=== PATIENT | female | born 1970 | race Caucasian/White ===

== ENCOUNTER 2020-01-28 01:33 | Inpatient (IN) | payer OTHER ==
[~2020-01-28] VITALS: Ht 175.3 cm; Wt 56.5 kg
--- NOTE | 2020-01-28 01:40 | NUR ---
pt BIB [facility] from [facility] for low sodium and mulitple falls [employer]. pt has bruising all over her body in mulitple stages of healing, and a scab on the bridge of her nose. pt is altered and thinks thta it is currently 2006. pt knows her name and her birthdate, but thinks that she is currently in [facility]. no family at bedside
[2020-01-28] MEDS ORDERED: SODIUM CHLORIDE 0.9% 1,000 ML IV ONE (01:55)
[2020-01-28] MEDS ORDERED: SODIUM CHLORIDE FLUSH 10ML SYR IVF ONE ×2 (02:00)
[2020-01-28] MEDS ORDERED: MAGNESIUM SULFATE 1 GM, THIAMINE 100 MG, FOLIC ACID 1 MG, MVI ADULT 10 ML in SODIUM CHL... IV ONE (02:00)
--- NOTE | 2020-01-28 02:00 | NUR ---
pt resting in position of comfort. no family at bedside
[2020-01-28 02:10] LABS: ALANINE AMINOTRANSFERASE 66 U/L (12-78); ALBUMIN 3.3 g/dL (3.4-5.0); ANION GAP 10 mmol/L (5-15); CALCIUM 8.8 mg/dL (8.5-10.1); CHLORIDE 84 mmol/L (98-107); CREATININE 0.62 mg/dL (0.55-1.02); MEAN CORPUSCULAR HEMOGLOBIN 34.6 pg (27.0-34.8); MEAN CORPUSCULAR HGB CONC 33.7 g/dL (32.4-35.8); RED BLOOD COUNT 3.18 x10^6/uL (3.82-5.3); RED CELL DISTRIBUTION WIDTH 13.3 % (9.6-15.2)
[2020-01-28 02:12] LABS: ALKALINE PHOSPHATASE 141 U/L (45-117); BILIRUBIN,TOTAL 3.1 mg/dL (0.2-1.0); TOTAL PROTEIN 7.4 g/dL (6.4-8.2)
--- NOTE | 2020-01-28 02:20 | NUR ---
report to [facility] for lunch
[2020-01-28 02:41] LABS: BASOPHILS # (AUTO) 0.02 x10^3/uL (0-0.1); BASOPHILS % (AUTO) 0 % (0-1); EOSINOPHILS # (AUTO) 0.01 x10^3/uL (0-0.4); EOSINOPHILS % (AUTO) 0 % (1-7); LYMPHOCYTES # (AUTO) 0.67 x10^3/uL (1-3.4); LYMPHOCYTES % (AUTO) 17 % (22-44); MD MORPH REVIEW ONLY; MEAN PLATELET VOLUME 7.9 fL (7.4-10.4); MONOCYTES % (AUTO) 13 % (2-9); NEUTROPHILS # (AUTO) 2.78 x10^3/uL (1.8-6.8); NEUTROPHILS % (AUTO) 70 % (42-75); PLATELET COUNT 92 x10^3/uL (130-400)
[2020-01-28 02:42] LABS: <RBC MORPHOLOGY> NORMAL
[2020-01-28 02:43] LABS: <PLATELET ESTIMATE> DECREASED; <PLT MORPHOLOGY> NORMAL PLT MORPH
--- NOTE | 2020-01-28 02:44 | NUR ---
Break rn: Awaiting med from rx.
--- NOTE | 2020-01-28 02:55 | NUR ---
pt has pulled out her IV#2. cath intact, dressing applied. new IV to be placed
--- NOTE | 2020-01-28 03:20 | NUR ---
pt positioned for comfort. fall precautions in place. seizure precautions in place. pt resting. IV infusing. awaiting admit
--- NOTE | 2020-01-28 04:01 | NUR ---
pt dozing intermittently. has been moved from room 15 to room 17 to be more visible to RN station. awaiting admit
--- NOTE | 2020-01-28 04:30 | NUR ---
pt sleeping at this time. awaiting admit
--- NOTE | 2020-01-28 05:56 | NUR ---
pt resting in position of comfort. dozing intermittently. pt knows her name, but thinks that she is in [place]. does not know events leading up to her admission here. attempting to re-orient pt. pt calm and cooperative. no apparent distress at this time. awaiting admit
--- NOTE | 2020-01-28 05:58 | NUR ---
hospitalist at bedside to evaluate for admit
[2020-01-28] MEDS ORDERED: LORazepam 0.5MG TABLET PO PRN (06:30)
[2020-01-28] MEDS ORDERED: LABETALOL 5MG/ML, 20ML IVPush PRN (06:30)
[2020-01-28] MEDS ORDERED: PROMETHAZINE 25 MG/ML, 1ML IM PRN (06:30)
[2020-01-28] MEDS ORDERED: NICOTINE 14MG/24 HR PATCH.TD24 TD ONE (06:30)
[2020-01-28] MEDS ORDERED: LORazepam 1MG TABLET PO PRN ×3 (06:30)
[2020-01-28] MEDS ORDERED: LORazepam 2 MG/ML, 1ML IV PRN ×2 (06:30)
--- NOTE | 2020-01-28 06:42 | NUR ---
bed assignment recieved, attempting to call report
--- NOTE | 2020-01-28 06:43 | NUR ---
report called to [facility]
--- NOTE | 2020-01-28 06:56 | NUR ---
pt to floor via [facility]. IV fluids infusing on admit
[2020-01-28 07:14] VITALS: BP 127/82
[2020-01-28] MEDS: POTASSIUM CHLORIDE 20 MEQ, MAGNESIUM SULFATE 2 GM, THIAMINE 200 MG, MVI ADULT 10 ML, FO... IV SCH (09:21)
[2020-01-28] MEDS: DIAZEPAM 10 MG TABLET PO SCH ×4 (09:21→21:15)
[2020-01-28 14:34] VITALS: BP 116/73
[2020-01-28] MEDS: LORazepam 2 MG/ML, 1ML IV PRN (18:00)
[2020-01-28 18:44] VITALS: BP 108/73
[2020-01-29 01:15] VITALS: BP 102/65
[2020-01-29] MEDS: DIAZEPAM 10 MG TABLET PO SCH (02:33)
[2020-01-29 04:03] VITALS: BP 138/87
[2020-01-29] MEDS: ACETAMINOPHEN 325 MG TABLET PO PRN ×2 (04:04→21:38)
[2020-01-29] MEDS: LORazepam 1MG TABLET PO PRN (04:07)
[2020-01-29 05:50] LABS: MEAN CORPUSCULAR HEMOGLOBIN 34.6 pg (27.0-34.8); MEAN CORPUSCULAR HGB CONC 33.6 g/dL (32.4-35.8); PLATELET COUNT 84 x10^3/uL (130-400); RED BLOOD COUNT 2.75 x10^6/uL (3.82-5.3); RED CELL DISTRIBUTION WIDTH 12.6 % (9.6-15.2)
[2020-01-29 05:51] LABS: CHLORIDE 97 mmol/L (98-107)
[2020-01-29 06:10] LABS: ALANINE AMINOTRANSFERASE 52 U/L (12-78); ALBUMIN 2.6 g/dL (3.4-5.0); ALKALINE PHOSPHATASE 119 U/L (45-117); ANION GAP 6 mmol/L (5-15); BILIRUBIN,TOTAL 1.6 mg/dL (0.2-1.0); CALCIUM 7.8 mg/dL (8.5-10.1); CREATININE 0.47 mg/dL (0.55-1.02)
[2020-01-29 06:24] LABS: BASOPHILS # (AUTO) 0.01 x10^3/uL (0-0.1); BASOPHILS % (AUTO) 1 % (0-1); EOSINOPHILS # (AUTO) 0.07 x10^3/uL (0-0.4); EOSINOPHILS % (AUTO) 2 % (1-7); LYMPHOCYTES % (AUTO) 23 % (22-44); MD SCAN; MONOCYTES % (AUTO) 13 % (2-9); NEUTROPHILS # (AUTO) 1.81 x10^3/uL (1.8-6.8); NEUTROPHILS % (AUTO) 61 % (42-75)
[2020-01-29] MEDS ORDERED: DIAZEPAM 5 MG TABLET PO SCH (06:30)
[2020-01-29 06:36] VITALS: BP 111/77
[2020-01-29 06:59] LABS: AMPHETAMINE SCREEN, URINE Negative (Negative); BARBITURATE SCREEN, URINE Negative (Negative); BENZODIAZEPINE SCREEN, URINE Positive (Negative); CANNABINOID SCREEN, URINE Negative (Negative); COCAINE SCREEN, URINE Negative (Negative); METHADONE SCREEN, URINE Negative (Negative); OPIATE SCREEN, URINE Negative (Negative)
[2020-01-29] MEDS: POTASSIUM CHLORIDE 20 MEQ, MAGNESIUM SULFATE 2 GM, THIAMINE 200 MG, MVI ADULT 10 ML, FO... IV SCH (10:00)
[2020-01-29] MEDS: LORazepam 2 MG/ML, 1ML IV PRN (10:21)
[2020-01-29] MEDS ORDERED: DIAZEPAM 10 MG TABLET PO PRN (10:30)
[2020-01-29] MEDS ORDERED: POTASSIUM PHOSPHATE 44 MEQ in SODIUM CHLORIDE 0.9% 500 ML IV ONE (10:30)
[2020-01-29 12:00] VITALS: BP 130/89
[2020-01-29] MEDS ORDERED: DIAZEPAM 10 MG TABLET PO SCH (12:30)
[2020-01-29] MEDS: CHLORDIAZEPOXIDE 25 MG CAPSULE PO SCH ×3 (13:36→21:29)
[2020-01-29 18:25] VITALS: BP 129/90
[2020-01-30] MEDS: LORazepam 2 MG/ML, 1ML IV PRN ×6 (01:10→21:33)
[2020-01-30 01:41] VITALS: BP 118/84
[2020-01-30 05:06] LABS: ANION GAP 6 mmol/L (5-15); CALCIUM 8.3 mg/dL (8.5-10.1); CHLORIDE 102 mmol/L (98-107)
[2020-01-30 05:09] LABS: CREATININE 0.47 mg/dL (0.55-1.02)
[2020-01-30] MEDS: CHLORDIAZEPOXIDE 25 MG CAPSULE PO SCH ×6 (05:40→20:43)
[2020-01-30 06:44] VITALS: BP 133/90
[2020-01-30] MEDS: POTASSIUM CHLORIDE 20 MEQ, MAGNESIUM SULFATE 2 GM, THIAMINE 200 MG, MVI ADULT 10 ML, FO... IV SCH (07:30)
[2020-01-30] MEDS: LORazepam 1MG TABLET PO PRN (07:38)
[2020-01-30] MEDS ORDERED: POTASSIUM CHLORIDE 20 MEQ TAB.ER.PRT PO ONE ×2 (09:00→11:00)
[2020-01-30 12:52] VITALS: BP 142/90
[2020-01-30 18:38] VITALS: BP 128/87
[2020-01-31] MEDS: LORazepam 2 MG/ML, 1ML IV PRN ×2 (00:34→08:35)
[2020-01-31 01:01] VITALS: BP 120/86
[2020-01-31] MEDS: CHLORDIAZEPOXIDE 25 MG CAPSULE PO SCH ×4 (04:54→21:00)
[2020-01-31 05:09] LABS: ALBUMIN 3.2 g/dL (3.4-5.0); ANION GAP 7 mmol/L (5-15); CALCIUM 9.1 mg/dL (8.5-10.1); CHLORIDE 102 mmol/L (98-107)
[2020-01-31 05:14] LABS: ALANINE AMINOTRANSFERASE 57 U/L (12-78); ALKALINE PHOSPHATASE 150 U/L (45-117); BILIRUBIN,TOTAL 1.2 mg/dL (0.2-1.0); CREATININE 0.47 mg/dL (0.55-1.02); TOTAL PROTEIN 7.6 g/dL (6.4-8.2)
[2020-01-31 07:11] VITALS: BP 136/87
[2020-01-31] MEDS: POTASSIUM CHLORIDE 20 MEQ, MAGNESIUM SULFATE 2 GM, THIAMINE 200 MG, MVI ADULT 10 ML, FO... IV SCH (08:38)
[2020-01-31 13:20] VITALS: BP 139/85
[2020-01-31 19:23] VITALS: BP 124/80
[2020-02-01 03:45] VITALS: BP 152/93
[2020-02-01] MEDS: CHLORDIAZEPOXIDE 25 MG CAPSULE PO SCH ×2 (06:00→11:00)
[2020-02-01 08:31] VITALS: BP 135/92
[2020-02-01] MEDS ORDERED: QUETIAPINE 25MG TABLET PO SCH (09:00)
[2020-02-01] MEDS: THIAMINE 200 MG in SODIUM CHLORIDE 0.9% 50 ML IV SCH (10:25)
[2020-02-01] MEDS: POTASSIUM CHLORIDE 20 MEQ, MAGNESIUM SULFATE 2 GM, THIAMINE 200 MG, MVI ADULT 10 ML, FO... IV SCH (11:46)
[2020-02-01 15:07] VITALS: BP 115/78
[2020-02-01 18:47] VITALS: BP 110/73
[2020-02-01] MEDS: QUETIAPINE 25MG TABLET PO PRN (20:59)
[2020-02-02 01:17] VITALS: BP 119/79
[2020-02-02 07:06] VITALS: BP 119/81
[2020-02-02] MEDS: POTASSIUM CHLORIDE 20 MEQ, MAGNESIUM SULFATE 2 GM, THIAMINE 200 MG, MVI ADULT 10 ML, FO... IV SCH (08:40)
[2020-02-02] MEDS: THIAMINE 200 MG in SODIUM CHLORIDE 0.9% 50 ML IV SCH (08:40)
[2020-02-02 12:52] VITALS: BP 134/85
[2020-02-02 20:30] VITALS: BP 118/77
[2020-02-03 00:26] VITALS: BP 124/79
[2020-02-03 08:36] VITALS: BP 129/86
[2020-02-03] MEDS: THIAMINE 200 MG in SODIUM CHLORIDE 0.9% 50 ML IV SCH (08:56)
[2020-02-03] MEDS: POTASSIUM CHLORIDE 20 MEQ, MAGNESIUM SULFATE 2 GM, THIAMINE 200 MG, MVI ADULT 10 ML, FO... IV SCH (08:57)
[2020-02-03 13:24] VITALS: BP 133/85
[2020-02-03 18:41] VITALS: BP 128/82
[2020-02-03 19:54] VITALS: BP 112/73
[2020-02-04 00:27] VITALS: BP 126/82
[2020-02-04] MEDS: QUETIAPINE 25MG TABLET PO PRN ×2 (03:10→21:08)
[2020-02-04 07:35] VITALS: BP 131/82
[2020-02-04] MEDS: THIAMINE 200 MG in SODIUM CHLORIDE 0.9% 50 ML IV SCH (09:00)
[2020-02-04 13:14] VITALS: BP 124/80
[2020-02-04 20:36] VITALS: BP 155/98
[2020-02-05 00:58] VITALS: BP 158/103
[2020-02-05 05:41] LABS: BASOPHILS # (AUTO) 0.08 x10^3/uL (0-0.1); BASOPHILS % (AUTO) 2 % (0-1); EOSINOPHILS # (AUTO) 0.08 x10^3/uL (0-0.4); EOSINOPHILS % (AUTO) 1 % (1-7); LYMPHOCYTES # (AUTO) 1.38 x10^3/uL (1-3.4); LYMPHOCYTES % (AUTO) 26 % (22-44); MD NO; MEAN CORPUSCULAR HEMOGLOBIN 33.4 pg (27.0-34.8); MEAN CORPUSCULAR HGB CONC 32.8 g/dL (32.4-35.8); MEAN PLATELET VOLUME 7.2 fL (7.4-10.4); MONOCYTES # (AUTO) 0.96 x10^3/uL (0.2-0.8); MONOCYTES % (AUTO) 18 % (2-9); NEUTROPHILS # (AUTO) 2.84 x10^3/uL (1.8-6.8); NEUTROPHILS % (AUTO) 53 % (42-75); PLATELET COUNT 440 x10^3/uL (130-400); RED BLOOD COUNT 3.02 x10^6/uL (3.82-5.3); RED CELL DISTRIBUTION WIDTH 14.5 % (9.6-15.2)
[2020-02-05 05:51] LABS: ANION GAP 8 mmol/L (5-15); CALCIUM 8.7 mg/dL (8.5-10.1); CHLORIDE 101 mmol/L (98-107)
[2020-02-05 05:54] LABS: CREATININE 0.42 mg/dL (0.55-1.02)
[2020-02-05 07:03] VITALS: BP 138/86
[2020-02-05] MEDS: THIAMINE 200 MG in SODIUM CHLORIDE 0.9% 50 ML IV SCH (09:54)
[2020-02-05] MEDS: MAGNESIUM OXIDE 400 MG TABLET PO SCH (12:27)
[2020-02-05 12:48] VITALS: BP 141/91
[2020-02-05 18:27] VITALS: BP 145/94
[2020-02-05] MEDS: QUETIAPINE 25MG TABLET PO PRN (20:54)
[2020-02-05 23:12] LABS: CLOSTRIDIUM DIFFICILE ANTIGEN POSITIVE; CLOSTRIDIUM DIFFICILE TOXIN NEGATIVE (Negative)
[2020-02-06 02:23] VITALS: BP 128/87
[2020-02-06 07:43] VITALS: BP 145/91
[2020-02-06 07:53] LABS: ALANINE AMINOTRANSFERASE 20 U/L (12-78); ALBUMIN 2.6 g/dL (3.4-5.0); ANION GAP 9 mmol/L (5-15); CHLORIDE 101 mmol/L (98-107)
[2020-02-06 07:58] LABS: ALKALINE PHOSPHATASE 114 U/L (45-117); BILIRUBIN,TOTAL 0.5 mg/dL (0.2-1.0); CREATININE 0.37 mg/dL (0.55-1.02)
[2020-02-06 08:06] LABS: CALCIUM 8.9 mg/dL (8.5-10.1)
[2020-02-06] MEDS ORDERED: THIAMINE 200 MG in SODIUM CHLORIDE 0.9% 50 ML IV SCH (09:00)
[2020-02-06] MEDS ORDERED: MAGNESIUM SULFATE PMX 4GM/100M 100 ML IV ONE (09:00)
[2020-02-06] MEDS ORDERED: POTASSIUM CHLORIDE 20 MEQ TAB.ER.PRT PO SCH (09:00)
[2020-02-06] MEDS: MAGNESIUM OXIDE 400 MG TABLET PO SCH (10:07)
[2020-02-06 13:32] VITALS: BP 126/84
[2020-02-06 18:24] VITALS: BP 143/93
[2020-02-06] MEDS: QUETIAPINE 25MG TABLET PO PRN (19:56)
[2020-02-07] MEDS: ACETAMINOPHEN 325 MG TABLET PO PRN (00:30)
[2020-02-07 01:23] VITALS: BP 110/72
[2020-02-07 06:57] VITALS: BP 128/83
[2020-02-07 07:18] LABS: ANION GAP 7 mmol/L (5-15); CALCIUM 8.9 mg/dL (8.5-10.1); CHLORIDE 99 mmol/L (98-107)
[2020-02-07 07:19] LABS: CREATININE 0.52 mg/dL (0.55-1.02)
[2020-02-07] MEDS: MAGNESIUM OXIDE 400 MG TABLET PO SCH (08:30)
[2020-02-07] MEDS: THIAMINE 100MG TABLET PO SCH (08:30)
[2020-02-07] MEDS: FOLIC ACID 1 MG TABLET PO SCH (08:30)
[2020-02-07 12:32] VITALS: BP 118/63
[2020-02-07] MEDS: QUETIAPINE 25MG TABLET PO PRN ×2 (16:29→20:26)
[2020-02-07 18:54] VITALS: BP 132/89
[2020-02-08 02:08] VITALS: BP 136/82
[2020-02-08] MEDS: ACETAMINOPHEN 325 MG TABLET PO PRN (02:39)
[2020-02-08 06:24] LABS: ANION GAP 10 mmol/L (5-15); CALCIUM 8.7 mg/dL (8.5-10.1); CHLORIDE 98 mmol/L (98-107)
[2020-02-08 06:25] LABS: CREATININE 0.59 mg/dL (0.55-1.02)
[2020-02-08 06:27] LABS: BASOPHILS # (AUTO) 0.09 x10^3/uL (0-0.1); BASOPHILS % (AUTO) 1 % (0-1); EOSINOPHILS # (AUTO) 0.14 x10^3/uL (0-0.4); EOSINOPHILS % (AUTO) 2 % (1-7); LYMPHOCYTES # (AUTO) 1.57 x10^3/uL (1-3.4); LYMPHOCYTES % (AUTO) 22 % (22-44); MD NO; MEAN CORPUSCULAR HGB CONC 32.6 g/dL (32.4-35.8); MEAN PLATELET VOLUME 6.6 fL (7.4-10.4); MONOCYTES # (AUTO) 0.87 x10^3/uL (0.2-0.8); MONOCYTES % (AUTO) 12 % (2-9); NEUTROPHILS # (AUTO) 4.48 x10^3/uL (1.8-6.8); NEUTROPHILS % (AUTO) 63 % (42-75); PLATELET COUNT 600 x10^3/uL (130-400); RED BLOOD COUNT 3.15 x10^6/uL (3.82-5.3); RED CELL DISTRIBUTION WIDTH 14.5 % (9.6-15.2)
[2020-02-08 07:22] VITALS: BP 130/89
[2020-02-08] MEDS: FOLIC ACID 1 MG TABLET PO SCH (08:53)
[2020-02-08] MEDS: QUETIAPINE 25MG TABLET PO PRN ×2 (08:53→20:19)
[2020-02-08] MEDS: POTASSIUM CHLORIDE 20 MEQ TAB.ER.PRT PO SCH ×2 (08:53→17:26)
[2020-02-08] MEDS: MAGNESIUM OXIDE 400 MG TABLET PO SCH (08:53)
[2020-02-08] MEDS: THIAMINE 100MG TABLET PO SCH (08:53)
[2020-02-08] MEDS: MULTIVIT.W/IRON, MINERALS ORAL SOL NG SCH (10:24)
[2020-02-08 13:12] VITALS: BP 115/78
[2020-02-08 19:51] VITALS: BP 140/91
[2020-02-09 01:00] VITALS: BP 132/83
[2020-02-09] MEDS ORDERED: ZIPRASIDONE 20 MG INJ IM ONE (04:00)
[2020-02-09 06:40] LABS: ANION GAP 5 mmol/L (5-15); CALCIUM 9.9 mg/dL (8.5-10.1); CHLORIDE 104 mmol/L (98-107); CREATININE 0.47 mg/dL (0.55-1.02)
[2020-02-09 08:26] VITALS: BP 136/88
[2020-02-09] MEDS: FOLIC ACID 1 MG TABLET PO SCH (11:42)
[2020-02-09] MEDS: MAGNESIUM OXIDE 400 MG TABLET PO SCH (11:42)
[2020-02-09] MEDS: MULTIVIT.W/IRON, MINERALS ORAL SOL NG SCH (11:42)
[2020-02-09] MEDS: THIAMINE 100MG TABLET PO SCH (11:42)
[2020-02-09] MEDS: QUETIAPINE 25MG TABLET PO PRN ×2 (11:45→21:19)
[2020-02-09 14:00] VITALS: BP 158/102
[2020-02-09 19:53] VITALS: BP 126/84
[2020-02-10 00:03] VITALS: BP 125/89
[2020-02-10 05:23] LABS: ANION GAP 9 mmol/L (5-15); CALCIUM 9.1 mg/dL (8.5-10.1); CHLORIDE 99 mmol/L (98-107); CREATININE 0.43 mg/dL (0.55-1.02)
[2020-02-10 05:42] LABS: BASOPHILS # (AUTO) 0.06 x10^3/uL (0-0.1); BASOPHILS % (AUTO) 1 % (0-1); EOSINOPHILS # (AUTO) 0.14 x10^3/uL (0-0.4); EOSINOPHILS % (AUTO) 2 % (1-7); LYMPHOCYTES # (AUTO) 1.78 x10^3/uL (1-3.4); LYMPHOCYTES % (AUTO) 19 % (22-44); MD NO; MEAN CORPUSCULAR HEMOGLOBIN 33.2 pg (27.0-34.8); MEAN CORPUSCULAR HGB CONC 33.4 g/dL (32.4-35.8); MEAN PLATELET VOLUME 7.4 fL (7.4-10.4); MONOCYTES % (AUTO) 11 % (2-9); NEUTROPHILS # (AUTO) 6.41 x10^3/uL (1.8-6.8); NEUTROPHILS % (AUTO) 68 % (42-75); PLATELET COUNT 570 x10^3/uL (130-400); RED BLOOD COUNT 3.15 x10^6/uL (3.82-5.3); RED CELL DISTRIBUTION WIDTH 14.2 % (9.6-15.2)
[2020-02-10] MEDS ORDERED: POTASSIUM CHLORIDE 20 MEQ TAB.ER.PRT PO ONE (06:30)
[2020-02-10 06:57] VITALS: BP 156/99
[2020-02-10] MEDS ORDERED: MAGNESIUM SULFATE PMX 2GM/50ML 50 ML IV ONE (09:30)
[2020-02-10] MEDS: QUETIAPINE 25MG TABLET PO PRN ×2 (09:44→20:09)
[2020-02-10] MEDS: MAGNESIUM OXIDE 400 MG TABLET PO SCH (09:44)
[2020-02-10] MEDS: THIAMINE 100MG TABLET PO SCH (09:44)
[2020-02-10] MEDS: FOLIC ACID 1 MG TABLET PO SCH (09:44)
[2020-02-10] MEDS: MULTIVIT.W/IRON, MINERALS ORAL SOL NG SCH (09:54)
[2020-02-10 10:26] LABS: MICROSCOPIC NOT IND
[2020-02-10 13:14] VITALS: BP 135/86
[2020-02-10] MEDS ORDERED: ZIPRASIDONE 20MG CAPSULE PO ONE (15:00)
[2020-02-10] MEDS: LORazepam 2 MG/ML, 1ML IVPush PRN ×2 (15:31→20:46)
[2020-02-10 20:09] VITALS: BP 142/91
[2020-02-10] MEDS: ACETAMINOPHEN 325 MG TABLET PO PRN (20:09)
[2020-02-11 02:00] VITALS: BP 136/87
[2020-02-11] MEDS: ACETAMINOPHEN 325 MG TABLET PO PRN (04:17)
[2020-02-11] MEDS: LORazepam 2 MG/ML, 1ML IVPush PRN ×3 (05:15→22:52)
[2020-02-11 05:36] LABS: ALBUMIN 2.8 g/dL (3.4-5.0); ANION GAP 6 mmol/L (5-15); CALCIUM 9.2 mg/dL (8.5-10.1); CHLORIDE 101 mmol/L (98-107)
[2020-02-11 05:40] LABS: ALANINE AMINOTRANSFERASE 19 U/L (12-78); ALKALINE PHOSPHATASE 104 U/L (45-117); BILIRUBIN,TOTAL 0.4 mg/dL (0.2-1.0); CREATININE 0.45 mg/dL (0.55-1.02); TOTAL PROTEIN 7.4 g/dL (6.4-8.2)
[2020-02-11] MEDS ORDERED: MAGNESIUM SULFATE/D5W 100 ML IV ONE ×2 (06:00→15:00)
[2020-02-11 07:51] VITALS: BP 128/83
[2020-02-11] MEDS ORDERED: LORazepam 2 MG/ML, 1ML IVPush ONE ×2 (09:00→15:30)
[2020-02-11] MEDS: FOLIC ACID 1 MG TABLET PO SCH (09:43)
[2020-02-11] MEDS: MAGNESIUM OXIDE 400 MG TABLET PO SCH (09:43)
[2020-02-11] MEDS: MULTIVITAMINS/MINERALS TABLET PO SCH (09:44)
[2020-02-11] MEDS: THIAMINE 100MG TABLET PO SCH (09:44)
[2020-02-11] MEDS: QUETIAPINE 25MG TABLET PO PRN ×2 (09:44→20:59)
[2020-02-11 13:10] VITALS: BP 122/81
[2020-02-11] MEDS ORDERED: POTASSIUM CHLORIDE 20 MEQ TAB.ER.PRT PO ONE (15:00)
[2020-02-11] MEDS ORDERED: SODIUM CHLORIDE 0.9%, 500ML IVBOLUS ONE (15:00)
[2020-02-11 18:44] VITALS: BP 127/80
[2020-02-12 02:02] VITALS: BP 152/99
[2020-02-12 06:29] VITALS: BP 148/93
[2020-02-12] MEDS ORDERED: OLANZAPINE 5 MG TABLET ONE (08:23)
[2020-02-12] MEDS: THIAMINE 100MG TABLET PO SCH (08:43)
[2020-02-12] MEDS: MAGNESIUM OXIDE 400 MG TABLET PO SCH (08:43)
[2020-02-12] MEDS: OLANZAPINE 2.5 MG TABLET PO SCH (08:43)
[2020-02-12] MEDS: MULTIVITAMINS/MINERALS TABLET PO SCH (08:43)
[2020-02-12] MEDS: FOLIC ACID 1 MG TABLET PO SCH (08:43)
[2020-02-12 13:11] VITALS: BP 136/76
[2020-02-12] MEDS: LORazepam 2 MG/ML, 1ML IVPush PRN ×2 (14:43→20:43)
[2020-02-12 19:36] VITALS: BP 120/84
[2020-02-12] MEDS: ACETAMINOPHEN 325 MG TABLET PO PRN (20:43)
[2020-02-13 02:46] VITALS: BP 143/94
[2020-02-13] MEDS: ACETAMINOPHEN 325 MG TABLET PO PRN (03:00)
[2020-02-13] MEDS: LORazepam 2 MG/ML, 1ML IVPush PRN ×4 (03:00→23:34)
[2020-02-13 05:45] LABS: ANION GAP 8 mmol/L (5-15); CALCIUM 9.2 mg/dL (8.5-10.1); CHLORIDE 101 mmol/L (98-107)
[2020-02-13 05:48] LABS: CREATININE 0.45 mg/dL (0.55-1.02)
[2020-02-13 07:31] VITALS: BP 142/96
[2020-02-13] MEDS: MULTIVITAMINS/MINERALS TABLET PO SCH (08:51)
[2020-02-13] MEDS: MAGNESIUM OXIDE 400 MG TABLET PO SCH (08:51)
[2020-02-13] MEDS: FOLIC ACID 1 MG TABLET PO SCH (08:51)
[2020-02-13] MEDS: THIAMINE 100MG TABLET PO SCH (08:51)
[2020-02-13] MEDS: OLANZAPINE 2.5 MG TABLET PO SCH (09:01)
[2020-02-13] MEDS ORDERED: OLANZAPINE 2.5 MG TABLET PO ONE (12:30)
[2020-02-13 12:41] VITALS: BP 143/102
[2020-02-13 18:49] VITALS: BP 124/85
[2020-02-14 00:21] VITALS: BP 119/89
[2020-02-14 06:11] LABS: ANION GAP 8 mmol/L (5-15); CALCIUM 9.3 mg/dL (8.5-10.1); CHLORIDE 98 mmol/L (98-107)
[2020-02-14 06:14] LABS: ALANINE AMINOTRANSFERASE 16 U/L (12-78); ALKALINE PHOSPHATASE 95 U/L (45-117); BILIRUBIN,TOTAL 0.3 mg/dL (0.2-1.0); CREATININE 0.46 mg/dL (0.55-1.02); TOTAL PROTEIN 7.4 g/dL (6.4-8.2)
[2020-02-14 06:36] VITALS: BP 125/82
[2020-02-14] MEDS: MAGNESIUM OXIDE 400 MG TABLET PO SCH (09:06)
[2020-02-14] MEDS: FOLIC ACID 1 MG TABLET PO SCH (09:06)
[2020-02-14] MEDS: THIAMINE 100MG TABLET PO SCH (09:07)
[2020-02-14] MEDS: OLANZAPINE 5 MG TABLET PO SCH (09:07)
[2020-02-14] MEDS: MULTIVITAMINS/MINERALS TABLET PO SCH (09:07)
[2020-02-14 13:49] VITALS: BP 126/87
[2020-02-14 18:51] VITALS: BP 123/80
[2020-02-15 01:56] VITALS: BP 120/82
[2020-02-15 07:21] VITALS: BP 138/88
[2020-02-15] MEDS: OLANZAPINE 5 MG TABLET PO SCH (08:13)
[2020-02-15] MEDS: FOLIC ACID 1 MG TABLET PO SCH (08:13)
[2020-02-15] MEDS: THIAMINE 100MG TABLET PO SCH (08:13)
[2020-02-15] MEDS: MULTIVITAMINS/MINERALS TABLET PO SCH (08:13)
[2020-02-15] MEDS: MAGNESIUM OXIDE 400 MG TABLET PO SCH (08:13)
[2020-02-15 12:53] VITALS: BP 114/80
[2020-02-15 18:57] VITALS: BP 136/88
[2020-02-16 00:30] VITALS: BP 120/82
[2020-02-16] MEDS: LORazepam 2 MG/ML, 1ML IVPush PRN (01:51)
[2020-02-16 07:30] LABS: ANION GAP 7 mmol/L (5-15); CALCIUM 9.3 mg/dL (8.5-10.1); CHLORIDE 101 mmol/L (98-107); CREATININE 0.39 mg/dL (0.55-1.02)
[2020-02-16 08:57] VITALS: BP 112/78
[2020-02-16] MEDS: THIAMINE 100MG TABLET PO SCH (10:03)
[2020-02-16] MEDS: MULTIVITAMINS/MINERALS TABLET PO SCH (10:03)
[2020-02-16] MEDS: OLANZAPINE 5 MG TABLET PO SCH (10:03)
[2020-02-16] MEDS: MAGNESIUM OXIDE 400 MG TABLET PO SCH (10:03)
[2020-02-16] MEDS: FOLIC ACID 1 MG TABLET PO SCH (10:03)
[2020-02-16 13:35] VITALS: BP 128/87
[2020-02-16 19:07] VITALS: BP 113/80
[2020-02-17 02:43] VITALS: BP 134/83
[2020-02-17 07:10] VITALS: BP 143/99
[2020-02-17] MEDS: MAGNESIUM OXIDE 400 MG TABLET PO SCH (08:58)
[2020-02-17] MEDS: MULTIVITAMINS/MINERALS TABLET PO SCH (08:58)
[2020-02-17] MEDS: FOLIC ACID 1 MG TABLET PO SCH (08:58)
[2020-02-17] MEDS: OLANZAPINE 5 MG TABLET PO SCH (08:58)
[2020-02-17] MEDS: THIAMINE 100MG TABLET PO SCH (08:58)
[2020-02-17 13:36] VITALS: BP 112/75
[2020-02-17 19:32] VITALS: BP 108/72
[2020-02-18 01:57] VITALS: BP 116/78
[2020-02-18 06:13] VITALS: BP 132/87
[2020-02-18] MEDS: FOLIC ACID 1 MG TABLET PO SCH (08:19)
[2020-02-18] MEDS: OLANZAPINE 5 MG TABLET PO SCH (08:19)
[2020-02-18] MEDS: MAGNESIUM OXIDE 400 MG TABLET PO SCH (08:19)
[2020-02-18] MEDS: MULTIVITAMINS/MINERALS TABLET PO SCH (08:19)
[2020-02-18] MEDS: THIAMINE 100MG TABLET PO SCH (08:19)
[2020-02-18 09:43] LABS: ALBUMIN 2.9 g/dL (3.4-5.0); ANION GAP 6 mmol/L (5-15); BASOPHILS # (AUTO) 0.03 x10^3/uL (0-0.1); BASOPHILS % (AUTO) 1 % (0-1); CALCIUM 9.5 mg/dL (8.5-10.1); CHLORIDE 102 mmol/L (98-107); EOSINOPHILS # (AUTO) 0.09 x10^3/uL (0-0.4); EOSINOPHILS % (AUTO) 1 % (1-7); LYMPHOCYTES # (AUTO) 1.41 x10^3/uL (1-3.4); LYMPHOCYTES % (AUTO) 22 % (22-44); MD NO; MEAN CORPUSCULAR HEMOGLOBIN 31.9 pg (27.0-34.8); MEAN CORPUSCULAR HGB CONC 32.5 g/dL (32.4-35.8); MEAN PLATELET VOLUME 7.4 fL (7.4-10.4); MONOCYTES # (AUTO) 0.63 x10^3/uL (0.2-0.8); MONOCYTES % (AUTO) 10 % (2-9); NEUTROPHILS # (AUTO) 4.37 x10^3/uL (1.8-6.8); NEUTROPHILS % (AUTO) 67 % (42-75); PLATELET COUNT 439 x10^3/uL (130-400); RED BLOOD COUNT 3.43 x10^6/uL (3.82-5.3); RED CELL DISTRIBUTION WIDTH 14.8 % (9.6-15.2)
[2020-02-18 09:44] LABS: ALANINE AMINOTRANSFERASE 17 U/L (12-78); ALKALINE PHOSPHATASE 91 U/L (45-117); BILIRUBIN,TOTAL 0.4 mg/dL (0.2-1.0); CREATININE 0.59 mg/dL (0.55-1.02); TOTAL PROTEIN 7.7 g/dL (6.4-8.2)
[2020-02-18 13:20] VITALS: BP 138/62
[2020-02-18] MEDS: POTASSIUM CHLORIDE 20 MEQ TAB.ER.PRT PO SCH ×2 (13:48→17:27)
[2020-02-18 18:54] VITALS: BP 130/57
[2020-02-19 01:52] VITALS: BP 139/64
[2020-02-19 06:13] LABS: BASOPHILS # (AUTO) 0.04 x10^3/uL (0-0.1); BASOPHILS % (AUTO) 1 % (0-1); EOSINOPHILS # (AUTO) 0.19 x10^3/uL (0-0.4); EOSINOPHILS % (AUTO) 3 % (1-7); LYMPHOCYTES # (AUTO) 1.83 x10^3/uL (1-3.4); LYMPHOCYTES % (AUTO) 24 % (22-44); MD NO; MEAN CORPUSCULAR HEMOGLOBIN 32.4 pg (27.0-34.8); MEAN CORPUSCULAR HGB CONC 33.4 g/dL (32.4-35.8); MEAN PLATELET VOLUME 7.9 fL (7.4-10.4); MONOCYTES # (AUTO) 0.93 x10^3/uL (0.2-0.8); MONOCYTES % (AUTO) 12 % (2-9); NEUTROPHILS # (AUTO) 4.64 x10^3/uL (1.8-6.8); NEUTROPHILS % (AUTO) 61 % (42-75); PLATELET COUNT 435 x10^3/uL (130-400); RED BLOOD COUNT 3.58 x10^6/uL (3.82-5.3); RED CELL DISTRIBUTION WIDTH 14.8 % (9.6-15.2)
[2020-02-19 06:27] LABS: ANION GAP 7 mmol/L (5-15); CALCIUM 9.3 mg/dL (8.5-10.1); CHLORIDE 103 mmol/L (98-107)
[2020-02-19 06:38] LABS: ALANINE AMINOTRANSFERASE 17 U/L (12-78); ALKALINE PHOSPHATASE 85 U/L (45-117); BILIRUBIN,TOTAL 0.4 mg/dL (0.2-1.0); CREATININE 0.43 mg/dL (0.55-1.02); TOTAL PROTEIN 7.9 g/dL (6.4-8.2)
[2020-02-19 08:15] VITALS: BP 130/88
[2020-02-19] MEDS: MULTIVITAMINS/MINERALS TABLET PO SCH (09:17)
[2020-02-19] MEDS: THIAMINE 100MG TABLET PO SCH (09:17)
[2020-02-19] MEDS: POTASSIUM CHLORIDE 20 MEQ TAB.ER.PRT PO SCH ×2 (09:17→16:49)
[2020-02-19] MEDS: OLANZAPINE 5 MG TABLET PO SCH (09:17)
[2020-02-19] MEDS: MAGNESIUM OXIDE 400 MG TABLET PO SCH (09:17)
[2020-02-19] MEDS: FOLIC ACID 1 MG TABLET PO SCH (09:17)
[2020-02-19 12:40] VITALS: BP 135/88
[2020-02-19 14:46] VITALS: BP 136/77
[2020-02-19 18:41] VITALS: BP 138/85
[2020-02-20 02:01] VITALS: BP 126/78
[2020-02-20 05:46] LABS: BASOPHILS # (AUTO) 0.08 x10^3/uL (0-0.1); BASOPHILS % (AUTO) 1 % (0-1); EOSINOPHILS % (AUTO) 3 % (1-7); LYMPHOCYTES # (AUTO) 1.81 x10^3/uL (1-3.4); LYMPHOCYTES % (AUTO) 27 % (22-44); MD NO; MEAN CORPUSCULAR HEMOGLOBIN 31.9 pg (27.0-34.8); MEAN CORPUSCULAR HGB CONC 33.1 g/dL (32.4-35.8); MEAN PLATELET VOLUME 7.7 fL (7.4-10.4); MONOCYTES # (AUTO) 0.79 x10^3/uL (0.2-0.8); MONOCYTES % (AUTO) 12 % (2-9); NEUTROPHILS # (AUTO) 3.83 x10^3/uL (1.8-6.8); NEUTROPHILS % (AUTO) 57 % (42-75); PLATELET COUNT 394 x10^3/uL (130-400); RED BLOOD COUNT 3.57 x10^6/uL (3.82-5.3); RED CELL DISTRIBUTION WIDTH 14.8 % (9.6-15.2)
[2020-02-20 05:55] LABS: ANION GAP 7 mmol/L (5-15); CALCIUM 9.7 mg/dL (8.5-10.1); CHLORIDE 105 mmol/L (98-107)
[2020-02-20 07:52] VITALS: BP 155/95
[2020-02-20] MEDS: POTASSIUM CHLORIDE 20 MEQ TAB.ER.PRT PO SCH (08:00)
[2020-02-20] MEDS: OLANZAPINE 5 MG TABLET PO SCH (10:25)
[2020-02-20] MEDS: MULTIVITAMINS/MINERALS TABLET PO SCH (10:25)
[2020-02-20] MEDS: ACETAMINOPHEN 325 MG TABLET PO PRN (10:25)
[2020-02-20] MEDS: MAGNESIUM OXIDE 400 MG TABLET PO SCH (10:25)
[2020-02-20] MEDS: FOLIC ACID 1 MG TABLET PO SCH (10:25)
[2020-02-20] MEDS: THIAMINE 100MG TABLET PO SCH ×2 (10:25→21:35)
[2020-02-20 13:54] VITALS: BP 146/95
[2020-02-20 18:35] VITALS: BP 124/82
[2020-02-21 02:16] VITALS: BP 126/78
[2020-02-21 07:04] VITALS: BP 142/91
[2020-02-21] MEDS: MAGNESIUM OXIDE 400 MG TABLET PO SCH (08:48)
[2020-02-21] MEDS: MULTIVITAMINS/MINERALS TABLET PO SCH (08:48)
[2020-02-21] MEDS: THIAMINE 100MG TABLET PO SCH ×2 (08:48→22:03)
[2020-02-21] MEDS: FOLIC ACID 1 MG TABLET PO SCH (08:48)
[2020-02-21] MEDS: OLANZAPINE 5 MG TABLET PO SCH (08:48)
[2020-02-21 13:26] VITALS: BP 136/88
[2020-02-21] MEDS: MEMANTINE 5MG TABLET PO SCH (14:07)
[2020-02-21 19:10] VITALS: BP 128/78
[2020-02-22 01:02] VITALS: BP 129/86
[2020-02-22 07:03] VITALS: BP 138/91
[2020-02-22] MEDS: OLANZAPINE 5 MG TABLET PO SCH (09:37)
[2020-02-22] MEDS: FOLIC ACID 1 MG TABLET PO SCH (09:37)
[2020-02-22] MEDS: MEMANTINE 5MG TABLET PO SCH (09:37)
[2020-02-22] MEDS: THIAMINE 100MG TABLET PO SCH ×2 (09:37→19:58)
[2020-02-22] MEDS: MULTIVITAMINS/MINERALS TABLET PO SCH (09:37)
[2020-02-22] MEDS: MAGNESIUM OXIDE 400 MG TABLET PO SCH (09:37)
[2020-02-22 13:43] VITALS: BP 122/78
[2020-02-22 18:17] VITALS: BP 122/79
[2020-02-22] MEDS: ACETAMINOPHEN 325 MG TABLET PO PRN (20:02)
[2020-02-23 02:23] VITALS: BP 122/84
[2020-02-23 08:27] VITALS: BP 127/82
[2020-02-23] MEDS: FOLIC ACID 1 MG TABLET PO SCH (08:32)
[2020-02-23] MEDS: OLANZAPINE 5 MG TABLET PO SCH (08:32)
[2020-02-23] MEDS: MEMANTINE 5MG TABLET PO SCH (08:32)
[2020-02-23] MEDS: THIAMINE 100MG TABLET PO SCH ×2 (08:32→19:44)
[2020-02-23] MEDS: MULTIVITAMINS/MINERALS TABLET PO SCH (08:32)
[2020-02-23] MEDS: MAGNESIUM OXIDE 400 MG TABLET PO SCH (08:32)
[2020-02-23 13:46] VITALS: BP 129/84
[2020-02-23] MEDS: ACETAMINOPHEN 325 MG TABLET PO PRN (19:44)
[2020-02-23 19:45] VITALS: BP 119/86
[2020-02-24 01:14] VITALS: BP 123/81
[2020-02-24 07:46] VITALS: BP 131/86
[2020-02-24] MEDS: FOLIC ACID 1 MG TABLET PO SCH (08:23)
[2020-02-24] MEDS: MULTIVITAMINS/MINERALS TABLET PO SCH (08:23)
[2020-02-24] MEDS: MAGNESIUM OXIDE 400 MG TABLET PO SCH (08:23)
[2020-02-24] MEDS: THIAMINE 100MG TABLET PO SCH ×2 (08:23→21:06)
[2020-02-24] MEDS: MEMANTINE 5MG TABLET PO SCH (08:23)
[2020-02-24] MEDS: OLANZAPINE 5 MG TABLET PO SCH (08:23)
[2020-02-24 13:56] VITALS: BP 127/89
[2020-02-24 21:02] VITALS: BP 127/84
[2020-02-25 00:20] VITALS: BP 121/73
[2020-02-25 07:20] VITALS: BP 142/92
[2020-02-25] MEDS: FOLIC ACID 1 MG TABLET PO SCH (09:12)
[2020-02-25] MEDS: MULTIVITAMINS/MINERALS TABLET PO SCH (09:12)
[2020-02-25] MEDS: THIAMINE 100MG TABLET PO SCH ×2 (09:12→20:11)
[2020-02-25] MEDS: OLANZAPINE 5 MG TABLET PO SCH (09:13)
[2020-02-25] MEDS: MAGNESIUM OXIDE 400 MG TABLET PO SCH (09:13)
[2020-02-25] MEDS: MEMANTINE 5MG TABLET PO SCH (09:13)
[2020-02-25] MEDS: PREGABALIN 25 MG CAPSULE PO SCH ×3 (09:15→20:11)
[2020-02-25 12:34] VITALS: BP 124/84
[2020-02-25] MEDS: ACETAMINOPHEN 325 MG TABLET PO PRN (15:24)
[2020-02-25 19:26] VITALS: BP 121/77
[2020-02-26] MEDS: ACETAMINOPHEN 325 MG TABLET PO PRN (02:21)
[2020-02-26 02:43] VITALS: BP 123/77
[2020-02-26] MEDS: FOLIC ACID 1 MG TABLET PO SCH (07:45)
[2020-02-26] MEDS: MAGNESIUM OXIDE 400 MG TABLET PO SCH (07:46)
[2020-02-26] MEDS: PREGABALIN 25 MG CAPSULE PO SCH ×3 (07:46→20:21)
[2020-02-26] MEDS: MEMANTINE 5MG TABLET PO SCH (07:46)
[2020-02-26] MEDS: MULTIVITAMINS/MINERALS TABLET PO SCH (07:46)
[2020-02-26] MEDS: THIAMINE 100MG TABLET PO SCH ×2 (07:46→20:22)
[2020-02-26] MEDS: OLANZAPINE 5 MG TABLET PO SCH (07:46)
[2020-02-26 08:43] VITALS: BP 121/88
[2020-02-26 12:17] VITALS: BP 129/89
[2020-02-26 18:43] VITALS: BP 110/74
[2020-02-27 01:32] VITALS: BP 139/88
[2020-02-27 06:46] VITALS: BP 143/91
[2020-02-27] MEDS: MAGNESIUM OXIDE 400 MG TABLET PO SCH (08:49)
[2020-02-27] MEDS: MULTIVITAMINS/MINERALS TABLET PO SCH (08:49)
[2020-02-27] MEDS: FOLIC ACID 1 MG TABLET PO SCH (08:49)
[2020-02-27] MEDS: MEMANTINE 5MG TABLET PO SCH (08:49)
[2020-02-27] MEDS: PREGABALIN 25 MG CAPSULE PO SCH ×3 (08:49→20:27)
[2020-02-27] MEDS: THIAMINE 100MG TABLET PO SCH ×2 (08:49→20:27)
[2020-02-27] MEDS: OLANZAPINE 5 MG TABLET PO SCH (08:49)
[2020-02-27 13:25] VITALS: BP 127/74
[2020-02-27 18:54] VITALS: BP 117/74
[2020-02-28 00:45] VITALS: BP 131/83
[2020-02-28 07:13] VITALS: BP 121/85
[2020-02-28] MEDS: PREGABALIN 25 MG CAPSULE PO SCH ×2 (09:34→20:37)
[2020-02-28] MEDS: OLANZAPINE 5 MG TABLET PO SCH (09:34)
[2020-02-28] MEDS: FOLIC ACID 1 MG TABLET PO SCH (09:34)
[2020-02-28] MEDS: MAGNESIUM OXIDE 400 MG TABLET PO SCH (09:34)
[2020-02-28] MEDS: MULTIVITAMINS/MINERALS TABLET PO SCH (09:34)
[2020-02-28] MEDS: THIAMINE 100MG TABLET PO SCH ×2 (09:34→20:37)
[2020-02-28] MEDS: MEMANTINE 5MG TABLET PO SCH (09:34)
[2020-02-28 13:48] VITALS: BP 131/82
[2020-02-28 18:34] VITALS: BP 123/76
[2020-02-29 02:10] VITALS: BP 143/89
[2020-02-29 07:49] VITALS: BP 120/82
[2020-02-29] MEDS: OLANZAPINE 5 MG TABLET PO SCH (09:46)
[2020-02-29] MEDS: MEMANTINE 5MG TABLET PO SCH (09:46)
[2020-02-29] MEDS: FOLIC ACID 1 MG TABLET PO SCH (09:46)
[2020-02-29] MEDS: THIAMINE 100MG TABLET PO SCH ×2 (09:46→20:52)
[2020-02-29] MEDS: PREGABALIN 25 MG CAPSULE PO SCH ×2 (09:46→20:52)
[2020-02-29] MEDS: MAGNESIUM OXIDE 400 MG TABLET PO SCH (09:46)
[2020-02-29] MEDS: MULTIVITAMINS/MINERALS TABLET PO SCH (09:46)
[2020-02-29 15:49] VITALS: BP 114/79
[2020-02-29 18:27] VITALS: BP 121/84
[2020-02-29] MEDS: ACETAMINOPHEN 325 MG TABLET PO PRN (19:21)
[2020-03-01 02:07] VITALS: BP 120/86
[2020-03-01] MEDS: ACETAMINOPHEN 325 MG TABLET PO PRN ×2 (04:30→18:41)
[2020-03-01 06:26] VITALS: BP 111/70
[2020-03-01] MEDS: MULTIVITAMINS/MINERALS TABLET PO SCH (08:14)
[2020-03-01] MEDS: FOLIC ACID 1 MG TABLET PO SCH (08:14)
[2020-03-01] MEDS: PREGABALIN 25 MG CAPSULE PO SCH ×2 (08:14→20:53)
[2020-03-01] MEDS: MAGNESIUM OXIDE 400 MG TABLET PO SCH (08:14)
[2020-03-01] MEDS: THIAMINE 100MG TABLET PO SCH ×2 (08:14→20:53)
[2020-03-01] MEDS: MEMANTINE 5MG TABLET PO SCH (08:14)
[2020-03-01] MEDS: OLANZAPINE 5 MG TABLET PO SCH (08:14)
[2020-03-01 12:10] VITALS: BP 117/82
[2020-03-01 18:51] VITALS: BP 102/69
[2020-03-02 00:15] VITALS: BP 126/84
[2020-03-02 06:26] VITALS: BP 129/84
[2020-03-02] MEDS: PREGABALIN 25 MG CAPSULE PO SCH ×2 (08:25→20:30)
[2020-03-02] MEDS: ACETAMINOPHEN 325 MG TABLET PO PRN ×2 (08:26→20:34)
[2020-03-02] MEDS: THIAMINE 100MG TABLET PO SCH ×2 (08:26→20:30)
[2020-03-02] MEDS: MEMANTINE 5MG TABLET PO SCH (08:26)
[2020-03-02] MEDS: FOLIC ACID 1 MG TABLET PO SCH (08:26)
[2020-03-02] MEDS: OLANZAPINE 5 MG TABLET PO SCH (08:26)
[2020-03-02] MEDS: MULTIVITAMINS/MINERALS TABLET PO SCH (08:26)
[2020-03-02] MEDS: MAGNESIUM OXIDE 400 MG TABLET PO SCH (08:26)
[2020-03-02 12:26] VITALS: BP 112/74
[2020-03-02 19:16] VITALS: BP 117/75
[2020-03-03 02:05] VITALS: BP 130/85
[2020-03-03] MEDS: ACETAMINOPHEN 325 MG TABLET PO PRN (02:26)
[2020-03-03 07:04] VITALS: BP 123/87
[2020-03-03 07:47] VITALS: BP 125/80
[2020-03-03] MEDS: MAGNESIUM OXIDE 400 MG TABLET PO SCH (08:10)
[2020-03-03] MEDS: PREGABALIN 25 MG CAPSULE PO SCH ×2 (08:10→20:02)
[2020-03-03] MEDS: THIAMINE 100MG TABLET PO SCH ×2 (08:11→20:02)
[2020-03-03] MEDS: OLANZAPINE 5 MG TABLET PO SCH (08:11)
[2020-03-03] MEDS: MULTIVITAMINS/MINERALS TABLET PO SCH (08:11)
[2020-03-03] MEDS: FOLIC ACID 1 MG TABLET PO SCH (08:11)
[2020-03-03] MEDS: MEMANTINE 5MG TABLET PO SCH (08:11)
[2020-03-03 12:58] VITALS: BP 111/76
[2020-03-03 20:04] VITALS: BP 116/81
[2020-03-04 01:52] VITALS: BP 126/86
[2020-03-04 07:51] VITALS: BP 110/77
[2020-03-04] MEDS: PREGABALIN 25 MG CAPSULE PO SCH ×2 (09:45→20:00)
[2020-03-04] MEDS: MAGNESIUM OXIDE 400 MG TABLET PO SCH (09:45)
[2020-03-04] MEDS: OLANZAPINE 5 MG TABLET PO SCH (09:45)
[2020-03-04] MEDS: MEMANTINE 5MG TABLET PO SCH (09:46)
[2020-03-04] MEDS: FOLIC ACID 1 MG TABLET PO SCH (09:46)
[2020-03-04] MEDS: MULTIVITAMINS/MINERALS TABLET PO SCH (09:46)
[2020-03-04] MEDS: THIAMINE 100MG TABLET PO SCH ×2 (09:46→20:00)
[2020-03-04 12:42] VITALS: BP 118/70
[2020-03-04 18:45] VITALS: BP 116/79
[2020-03-05 00:47] VITALS: BP 118/80
[2020-03-05 07:39] VITALS: BP 109/78
[2020-03-05] MEDS: PREGABALIN 25 MG CAPSULE PO SCH ×2 (10:04→21:34)
[2020-03-05] MEDS: MULTIVITAMINS/MINERALS TABLET PO SCH (10:05)
[2020-03-05] MEDS: OLANZAPINE 5 MG TABLET PO SCH (10:05)
[2020-03-05] MEDS: FOLIC ACID 1 MG TABLET PO SCH (10:05)
[2020-03-05] MEDS: MAGNESIUM OXIDE 400 MG TABLET PO SCH (10:05)
[2020-03-05] MEDS: THIAMINE 100MG TABLET PO SCH ×2 (10:05→21:34)
[2020-03-05] MEDS: MEMANTINE 5MG TABLET PO SCH (10:05)
[2020-03-05 12:12] VITALS: BP 101/67
[2020-03-05 19:37] VITALS: BP 103/73
[2020-03-06 01:33] VITALS: BP 111/73
[2020-03-06 06:44] LABS: BASOPHILS # (AUTO) 0.03 x10^3/uL (0-0.1); BASOPHILS % (AUTO) 1 % (0-1); EOSINOPHILS # (AUTO) 0.18 x10^3/uL (0-0.4); EOSINOPHILS % (AUTO) 3 % (1-7); LYMPHOCYTES # (AUTO) 1.93 x10^3/uL (1-3.4); LYMPHOCYTES % (AUTO) 27 % (22-44); MD NO; MEAN CORPUSCULAR HEMOGLOBIN 31.2 pg (27.0-34.8); MEAN CORPUSCULAR HGB CONC 33.3 g/dL (32.4-35.8); MEAN PLATELET VOLUME 8.2 fL (7.4-10.4); MONOCYTES # (AUTO) 0.91 x10^3/uL (0.2-0.8); MONOCYTES % (AUTO) 13 % (2-9); NEUTROPHILS # (AUTO) 4.13 x10^3/uL (1.8-6.8); NEUTROPHILS % (AUTO) 58 % (42-75); PLATELET COUNT 285 x10^3/uL (130-400); RED BLOOD COUNT 3.87 x10^6/uL (3.82-5.3); RED CELL DISTRIBUTION WIDTH 14.6 % (9.6-15.2)
[2020-03-06 07:02] LABS: ALANINE AMINOTRANSFERASE 13 U/L (12-78); ALBUMIN 3.2 g/dL (3.4-5.0); ANION GAP 9 mmol/L (5-15); CALCIUM 10.3 mg/dL (8.5-10.1); CHLORIDE 104 mmol/L (98-107)
[2020-03-06 07:05] LABS: ALKALINE PHOSPHATASE 76 U/L (45-117); BILIRUBIN,TOTAL 0.4 mg/dL (0.2-1.0); TOTAL PROTEIN 7.5 g/dL (6.4-8.2)
[2020-03-06 07:26] VITALS: BP 118/84
[2020-03-06] MEDS: MEMANTINE 5MG TABLET PO SCH (09:54)
[2020-03-06] MEDS: MAGNESIUM OXIDE 400 MG TABLET PO SCH (09:54)
[2020-03-06] MEDS: THIAMINE 100MG TABLET PO SCH ×2 (09:54→19:49)
[2020-03-06] MEDS: FOLIC ACID 1 MG TABLET PO SCH (09:54)
[2020-03-06] MEDS: MULTIVITAMINS/MINERALS TABLET PO SCH (09:54)
[2020-03-06] MEDS: PREGABALIN 25 MG CAPSULE PO SCH ×2 (09:54→19:49)
[2020-03-06] MEDS: OLANZAPINE 5 MG TABLET PO SCH (09:55)
[2020-03-06 13:21] VITALS: BP 106/73
[2020-03-06 19:16] VITALS: BP 102/69
[2020-03-07 00:59] VITALS: BP 101/71
[2020-03-07 07:15] VITALS: BP 101/72
[2020-03-07] MEDS: MAGNESIUM OXIDE 400 MG TABLET PO SCH (08:45)
[2020-03-07] MEDS: OLANZAPINE 5 MG TABLET PO SCH (08:45)
[2020-03-07] MEDS: MULTIVITAMINS/MINERALS TABLET PO SCH (08:45)
[2020-03-07] MEDS: PREGABALIN 25 MG CAPSULE PO SCH ×2 (08:45→20:36)
[2020-03-07] MEDS: THIAMINE 100MG TABLET PO SCH ×2 (08:45→20:37)
[2020-03-07] MEDS: MEMANTINE 5MG TABLET PO SCH (08:45)
[2020-03-07] MEDS: FOLIC ACID 1 MG TABLET PO SCH (08:45)
[2020-03-07 14:27] VITALS: BP 108/75
[2020-03-07] MEDS ORDERED: THIAMINE 50MG TABLET ONE (20:18)
[2020-03-07 20:34] VITALS: BP 109/75
[2020-03-08 00:24] VITALS: BP 103/70
[2020-03-08 06:54] VITALS: BP 109/75
[2020-03-08] MEDS ORDERED: THIAMINE 50MG TABLET ONE (09:09)
[2020-03-08] MEDS: MULTIVITAMINS/MINERALS TABLET PO SCH (09:13)
[2020-03-08] MEDS: THIAMINE 100MG TABLET PO SCH ×2 (09:13→20:34)
[2020-03-08] MEDS: MAGNESIUM OXIDE 400 MG TABLET PO SCH (09:13)
[2020-03-08] MEDS: MEMANTINE 5MG TABLET PO SCH (09:13)
[2020-03-08] MEDS: FOLIC ACID 1 MG TABLET PO SCH (09:13)
[2020-03-08] MEDS: OLANZAPINE 5 MG TABLET PO SCH (09:14)
[2020-03-08] MEDS: PREGABALIN 25 MG CAPSULE PO SCH ×2 (11:01→20:34)
[2020-03-08 14:15] VITALS: BP 113/73
[2020-03-08 20:23] VITALS: BP 101/65
[2020-03-09 00:21] VITALS: BP 119/80
[2020-03-09 07:12] VITALS: BP 113/80
[2020-03-09] MEDS: PREGABALIN 25 MG CAPSULE PO SCH ×2 (09:00→21:00)
[2020-03-09] MEDS: THIAMINE 100MG TABLET PO SCH ×2 (10:41→21:51)
[2020-03-09] MEDS: OLANZAPINE 5 MG TABLET PO SCH (10:41)
[2020-03-09] MEDS: MAGNESIUM OXIDE 400 MG TABLET PO SCH (10:41)
[2020-03-09] MEDS: FOLIC ACID 1 MG TABLET PO SCH (10:41)
[2020-03-09] MEDS: MULTIVITAMINS/MINERALS TABLET PO SCH (10:41)
[2020-03-09] MEDS: MEMANTINE 5MG TABLET PO SCH (10:41)
[2020-03-09 15:59] VITALS: BP 111/74
[2020-03-09 19:24] VITALS: BP 96/58
[2020-03-09] MEDS: ACETAMINOPHEN 325 MG TABLET PO PRN (21:50)
[2020-03-10 03:00] VITALS: BP 112/74
[2020-03-10 06:48] VITALS: BP 110/78
[2020-03-10] MEDS: PREGABALIN 25 MG CAPSULE PO SCH ×2 (09:00→20:11)
[2020-03-10] MEDS: FOLIC ACID 1 MG TABLET PO SCH (10:04)
[2020-03-10] MEDS: MAGNESIUM OXIDE 400 MG TABLET PO SCH (10:04)
[2020-03-10] MEDS: MEMANTINE 5MG TABLET PO SCH (10:04)
[2020-03-10] MEDS: MULTIVITAMINS/MINERALS TABLET PO SCH (10:04)
[2020-03-10] MEDS: OLANZAPINE 5 MG TABLET PO SCH (10:04)
[2020-03-10] MEDS: THIAMINE 100MG TABLET PO SCH ×2 (10:05→20:11)
[2020-03-10 14:24] VITALS: BP 106/73
[2020-03-10 18:48] VITALS: BP 106/67
[2020-03-11 01:03] VITALS: BP 107/72
[2020-03-11 07:55] VITALS: BP 106/77
[2020-03-11] MEDS: PREGABALIN 25 MG CAPSULE PO SCH ×2 (08:21→20:00)
[2020-03-11] MEDS: FOLIC ACID 1 MG TABLET PO SCH (08:22)
[2020-03-11] MEDS: OLANZAPINE 5 MG TABLET PO SCH (08:22)
[2020-03-11] MEDS: THIAMINE 100MG TABLET PO SCH ×2 (08:22→20:00)
[2020-03-11] MEDS: MULTIVITAMINS/MINERALS TABLET PO SCH (08:22)
[2020-03-11] MEDS: MAGNESIUM OXIDE 400 MG TABLET PO SCH (08:22)
[2020-03-11] MEDS: MEMANTINE 5MG TABLET PO SCH (08:22)
[2020-03-11 13:09] VITALS: BP 106/71
[2020-03-11 18:26] VITALS: BP 105/72
[2020-03-12 00:32] VITALS: BP 102/67
[2020-03-12 07:32] VITALS: BP 111/76
[2020-03-12] MEDS: FOLIC ACID 1 MG TABLET PO SCH (08:51)
[2020-03-12] MEDS: MAGNESIUM OXIDE 400 MG TABLET PO SCH (08:52)
[2020-03-12] MEDS: PREGABALIN 25 MG CAPSULE PO SCH ×2 (08:52→20:05)
[2020-03-12] MEDS: MULTIVITAMINS/MINERALS TABLET PO SCH (08:52)
[2020-03-12] MEDS: THIAMINE 100MG TABLET PO SCH ×2 (08:53→20:04)
[2020-03-12] MEDS: OLANZAPINE 5 MG TABLET PO SCH (08:53)
[2020-03-12] MEDS: MEMANTINE 5MG TABLET PO SCH (08:53)
[2020-03-12 12:43] VITALS: BP 100/71
[2020-03-12 13:32] VITALS: BP 104/67
[2020-03-12 20:01] VITALS: BP 109/73
[2020-03-13 02:02] VITALS: BP 102/69
[2020-03-13] MEDS: FOLIC ACID 1 MG TABLET PO SCH (08:52)
[2020-03-13] MEDS: MULTIVITAMINS/MINERALS TABLET PO SCH (08:52)
[2020-03-13] MEDS: PREGABALIN 25 MG CAPSULE PO SCH ×2 (08:52→21:42)
[2020-03-13 08:53] VITALS: BP 100/68
[2020-03-13] MEDS: MEMANTINE 5MG TABLET PO SCH (08:53)
[2020-03-13] MEDS: OLANZAPINE 5 MG TABLET PO SCH (08:53)
[2020-03-13] MEDS: THIAMINE 100MG TABLET PO SCH ×2 (08:53→21:43)
[2020-03-13] MEDS: MAGNESIUM OXIDE 400 MG TABLET PO SCH (08:53)
[2020-03-13 13:24] VITALS: BP 105/70
[2020-03-13 18:25] VITALS: BP 101/70
[2020-03-14 00:12] VITALS: BP 99/66
[2020-03-14 08:28] VITALS: BP 106/75
[2020-03-14] MEDS: OLANZAPINE 5 MG TABLET PO SCH (08:57)
[2020-03-14] MEDS: PREGABALIN 25 MG CAPSULE PO SCH ×2 (08:57→20:22)
[2020-03-14] MEDS: MEMANTINE 5MG TABLET PO SCH (08:57)
[2020-03-14] MEDS: FOLIC ACID 1 MG TABLET PO SCH (08:57)
[2020-03-14] MEDS: THIAMINE 100MG TABLET PO SCH ×2 (08:57→20:22)
[2020-03-14] MEDS: MAGNESIUM OXIDE 400 MG TABLET PO SCH (08:58)
[2020-03-14] MEDS: MULTIVITAMINS/MINERALS TABLET PO SCH (08:58)
[2020-03-14] MEDS ORDERED: HALOPERIDOL 5 MG/ML IM PRN (09:00)
[2020-03-14 12:21] VITALS: BP 108/76
[2020-03-14 19:46] VITALS: BP 109/73
[2020-03-15 01:13] VITALS: BP 117/81
[2020-03-15 05:18] LABS: ANION GAP 6 mmol/L (5-15); CALCIUM 9.9 mg/dL (8.5-10.1); CHLORIDE 106 mmol/L (98-107)
[2020-03-15 05:21] LABS: ALANINE AMINOTRANSFERASE 11 U/L (12-78); ALKALINE PHOSPHATASE 76 U/L (45-117); BILIRUBIN,TOTAL 0.4 mg/dL (0.2-1.0); CREATININE 0.52 mg/dL (0.55-1.02); TOTAL PROTEIN 7.2 g/dL (6.4-8.2)
[2020-03-15 07:24] VITALS: BP 102/64
[2020-03-15] MEDS: FOLIC ACID 1 MG TABLET PO SCH (08:11)
[2020-03-15] MEDS: MULTIVITAMINS/MINERALS TABLET PO SCH (08:11)
[2020-03-15] MEDS: MAGNESIUM OXIDE 400 MG TABLET PO SCH (08:11)
[2020-03-15] MEDS: THIAMINE 100MG TABLET PO SCH ×2 (08:11→20:24)
[2020-03-15] MEDS: PREGABALIN 25 MG CAPSULE PO SCH ×2 (08:11→20:24)
[2020-03-15] MEDS: MEMANTINE 5MG TABLET PO SCH (08:11)
[2020-03-15] MEDS: OLANZAPINE 5 MG TABLET PO SCH (08:12)
[2020-03-15 12:05] VITALS: BP 96/67
[2020-03-15] MEDS: ENOXAPARIN 40 MG/0.4 ML SQ SCH (12:09)
[2020-03-15] MEDS: ACETAMINOPHEN 325 MG TABLET PO PRN (12:17)
[2020-03-15 20:00] VITALS: BP 104/71
[2020-03-16 00:38] VITALS: BP 108/74
[2020-03-16 07:46] VITALS: BP 114/75
[2020-03-16] MEDS: MEMANTINE 5MG TABLET PO SCH (09:52)
[2020-03-16] MEDS: PREGABALIN 25 MG CAPSULE PO SCH ×2 (09:52→20:44)
[2020-03-16] MEDS: ENOXAPARIN 40 MG/0.4 ML SQ SCH (09:52)
[2020-03-16] MEDS: OLANZAPINE 5 MG TABLET PO SCH (09:52)
[2020-03-16] MEDS: MAGNESIUM OXIDE 400 MG TABLET PO SCH (09:52)
[2020-03-16] MEDS: MULTIVITAMINS/MINERALS TABLET PO SCH (09:53)
[2020-03-16] MEDS: FOLIC ACID 1 MG TABLET PO SCH (09:53)
[2020-03-16] MEDS: THIAMINE 100MG TABLET PO SCH ×2 (09:53→20:44)
[2020-03-16 13:00] VITALS: BP 104/72
[2020-03-16 20:10] VITALS: BP 99/67
[2020-03-17 02:17] VITALS: BP 99/64
[2020-03-17] MEDS: THIAMINE 100MG TABLET PO SCH ×2 (07:37→20:31)
[2020-03-17] MEDS: MULTIVITAMINS/MINERALS TABLET PO SCH (07:37)
[2020-03-17] MEDS: PREGABALIN 25 MG CAPSULE PO SCH ×2 (07:37→20:31)
[2020-03-17] MEDS: OLANZAPINE 5 MG TABLET PO SCH (07:37)
[2020-03-17] MEDS: MAGNESIUM OXIDE 400 MG TABLET PO SCH (07:37)
[2020-03-17] MEDS: MEMANTINE 5MG TABLET PO SCH (07:38)
[2020-03-17] MEDS: FOLIC ACID 1 MG TABLET PO SCH (07:38)
[2020-03-17 07:54] VITALS: BP 113/79
[2020-03-17] MEDS: ENOXAPARIN 40 MG/0.4 ML SQ SCH (11:31)
[2020-03-17 13:56] VITALS: BP 105/72
[2020-03-17 20:12] VITALS: BP 100/67
[2020-03-18 00:15] VITALS: BP 105/75
[2020-03-18 08:06] VITALS: BP 107/79
[2020-03-18] MEDS: MULTIVITAMINS/MINERALS TABLET PO SCH (09:11)
[2020-03-18] MEDS: MEMANTINE 5MG TABLET PO SCH (09:11)
[2020-03-18] MEDS: FOLIC ACID 1 MG TABLET PO SCH (09:11)
[2020-03-18] MEDS: MAGNESIUM OXIDE 400 MG TABLET PO SCH (09:11)
[2020-03-18] MEDS: THIAMINE 100MG TABLET PO SCH ×2 (09:11→20:21)
[2020-03-18] MEDS: ENOXAPARIN 40 MG/0.4 ML SQ SCH (09:12)
[2020-03-18] MEDS: PREGABALIN 25 MG CAPSULE PO SCH ×2 (09:12→20:21)
[2020-03-18] MEDS: OLANZAPINE 5 MG TABLET PO SCH (09:12)
[2020-03-18 14:28] VITALS: BP 101/70
[2020-03-18 19:20] VITALS: BP 106/73
[2020-03-19 00:34] VITALS: BP 103/71
[2020-03-19] MEDS: MAGNESIUM OXIDE 400 MG TABLET PO SCH (07:37)
[2020-03-19] MEDS: THIAMINE 100MG TABLET PO SCH ×2 (07:37→20:28)
[2020-03-19] MEDS: OLANZAPINE 5 MG TABLET PO SCH (07:37)
[2020-03-19] MEDS: MULTIVITAMINS/MINERALS TABLET PO SCH (07:37)
[2020-03-19] MEDS: PREGABALIN 25 MG CAPSULE PO SCH ×2 (07:37→20:28)
[2020-03-19] MEDS: MEMANTINE 5MG TABLET PO SCH (07:37)
[2020-03-19] MEDS: FOLIC ACID 1 MG TABLET PO SCH (07:37)
[2020-03-19 08:05] VITALS: BP 110/77
[2020-03-19] MEDS: ENOXAPARIN 40 MG/0.4 ML SQ SCH (12:31)
[2020-03-19 12:40] VITALS: BP 105/73
[2020-03-19 18:48] VITALS: BP 111/74
[2020-03-20 00:21] VITALS: BP 105/73
[2020-03-20 06:57] VITALS: BP 109/64
[2020-03-20] MEDS: THIAMINE 100MG TABLET PO SCH ×2 (08:48→19:49)
[2020-03-20] MEDS: OLANZAPINE 5 MG TABLET PO SCH (08:48)
[2020-03-20] MEDS: MULTIVITAMINS/MINERALS TABLET PO SCH (08:48)
[2020-03-20] MEDS: MEMANTINE 5MG TABLET PO SCH (08:48)
[2020-03-20] MEDS: MAGNESIUM OXIDE 400 MG TABLET PO SCH (08:48)
[2020-03-20] MEDS: PREGABALIN 25 MG CAPSULE PO SCH ×2 (08:48→19:49)
[2020-03-20] MEDS: FOLIC ACID 1 MG TABLET PO SCH (08:48)
[2020-03-20] MEDS: ENOXAPARIN 40 MG/0.4 ML SQ SCH (12:49)
[2020-03-20 13:59] VITALS: BP 107/74
[2020-03-20 18:32] VITALS: BP 97/67
[2020-03-20 19:47] VITALS: BP 108/71
[2020-03-20] MEDS: ACETAMINOPHEN 325 MG TABLET PO PRN (19:49)
[2020-03-21 02:51] VITALS: BP 103/70
[2020-03-21 05:19] LABS: CREATININE 0.49 mg/dL (0.55-1.02)
[2020-03-21 07:22] VITALS: BP 91/65
[2020-03-21] MEDS: MEMANTINE 5MG TABLET PO SCH (09:09)
[2020-03-21] MEDS: THIAMINE 100MG TABLET PO SCH ×2 (09:09→19:49)
[2020-03-21] MEDS: OLANZAPINE 5 MG TABLET PO SCH (09:09)
[2020-03-21] MEDS: FOLIC ACID 1 MG TABLET PO SCH (09:09)
[2020-03-21] MEDS: MULTIVITAMINS/MINERALS TABLET PO SCH (09:09)
[2020-03-21] MEDS: PREGABALIN 25 MG CAPSULE PO SCH ×2 (09:09→19:49)
[2020-03-21] MEDS: ENOXAPARIN 40 MG/0.4 ML SQ SCH (12:08)
[2020-03-21 14:59] VITALS: BP 99/63
[2020-03-21 19:04] VITALS: BP 99/65
[2020-03-22 00:51] VITALS: BP 96/71
[2020-03-22 06:41] VITALS: BP 110/67
[2020-03-22] MEDS: MEMANTINE 5MG TABLET PO SCH (09:52)
[2020-03-22] MEDS: MULTIVITAMINS/MINERALS TABLET PO SCH (09:52)
[2020-03-22] MEDS: PREGABALIN 25 MG CAPSULE PO SCH ×2 (09:52→22:01)
[2020-03-22] MEDS: FOLIC ACID 1 MG TABLET PO SCH (09:52)
[2020-03-22] MEDS: THIAMINE 100MG TABLET PO SCH ×2 (09:53→22:01)
[2020-03-22] MEDS: OLANZAPINE 5 MG TABLET PO SCH (09:53)
[2020-03-22] MEDS: ENOXAPARIN 40 MG/0.4 ML SQ SCH (11:27)
[2020-03-22 14:32] VITALS: BP 105/68
[2020-03-22 19:41] VITALS: BP 102/61
[2020-03-22 21:59] VITALS: BP 100/68
[2020-03-23 01:33] VITALS: BP 112/73
[2020-03-23 06:43] VITALS: BP 118/78
[2020-03-23] MEDS: MULTIVITAMINS/MINERALS TABLET PO SCH (09:07)
[2020-03-23] MEDS: FOLIC ACID 1 MG TABLET PO SCH (09:07)
[2020-03-23] MEDS: THIAMINE 100MG TABLET PO SCH ×2 (09:07→19:37)
[2020-03-23] MEDS: PREGABALIN 25 MG CAPSULE PO SCH ×2 (09:07→19:37)
[2020-03-23] MEDS: OLANZAPINE 5 MG TABLET PO SCH (09:07)
[2020-03-23] MEDS: MEMANTINE 5MG TABLET PO SCH (09:07)
[2020-03-23] MEDS: ENOXAPARIN 40 MG/0.4 ML SQ SCH (12:22)
[2020-03-23 14:06] VITALS: BP 97/58
[2020-03-23 19:22] VITALS: BP 101/67
[2020-03-24 00:55] VITALS: BP 103/71
[2020-03-24 05:57] LABS: CREATININE 0.55 mg/dL (0.55-1.02)
[2020-03-24 06:32] VITALS: BP 101/69
[2020-03-24] MEDS: MEMANTINE 5MG TABLET PO SCH (07:54)
[2020-03-24] MEDS: PREGABALIN 25 MG CAPSULE PO SCH ×2 (07:54→21:09)
[2020-03-24] MEDS: FOLIC ACID 1 MG TABLET PO SCH (07:54)
[2020-03-24] MEDS: MULTIVITAMINS/MINERALS TABLET PO SCH (07:54)
[2020-03-24] MEDS: OLANZAPINE 5 MG TABLET PO SCH (07:54)
[2020-03-24] MEDS: THIAMINE 100MG TABLET PO SCH ×2 (07:54→21:09)
[2020-03-24] MEDS: ENOXAPARIN 40 MG/0.4 ML SQ SCH (11:05)
[2020-03-24 12:24] VITALS: BP 99/65
[2020-03-24 18:53] VITALS: BP 105/73
[2020-03-25 02:10] VITALS: BP 103/70
[2020-03-25 07:00] VITALS: BP 110/73
[2020-03-25] MEDS: MULTIVITAMINS/MINERALS TABLET PO SCH (08:59)
[2020-03-25] MEDS: OLANZAPINE 5 MG TABLET PO SCH (08:59)
[2020-03-25] MEDS: FOLIC ACID 1 MG TABLET PO SCH (08:59)
[2020-03-25] MEDS: MEMANTINE 5MG TABLET PO SCH (08:59)
[2020-03-25] MEDS: THIAMINE 100MG TABLET PO SCH ×2 (08:59→19:53)
[2020-03-25] MEDS: PREGABALIN 25 MG CAPSULE PO SCH ×2 (11:42→19:53)
[2020-03-25] MEDS: ENOXAPARIN 40 MG/0.4 ML SQ SCH (11:43)
[2020-03-25 15:26] VITALS: BP 103/72
[2020-03-25 20:57] VITALS: BP 104/70
[2020-03-26 00:48] VITALS: BP 103/70
[2020-03-26 07:16] VITALS: BP 101/74
[2020-03-26] MEDS: FOLIC ACID 1 MG TABLET PO SCH (09:33)
[2020-03-26] MEDS: MEMANTINE 5MG TABLET PO SCH (09:33)
[2020-03-26] MEDS: PREGABALIN 25 MG CAPSULE PO SCH ×2 (09:33→22:15)
[2020-03-26] MEDS: OLANZAPINE 5 MG TABLET PO SCH (09:33)
[2020-03-26] MEDS: THIAMINE 100MG TABLET PO SCH ×2 (09:33→22:14)
[2020-03-26] MEDS: MULTIVITAMINS/MINERALS TABLET PO SCH (09:34)
[2020-03-26] MEDS: ENOXAPARIN 40 MG/0.4 ML SQ SCH (12:02)
[2020-03-26 12:37] VITALS: BP 102/68
[2020-03-26 19:34] VITALS: BP 98/63
[2020-03-27 01:56] VITALS: BP 104/72
[2020-03-27 09:04] VITALS: BP 105/73
[2020-03-27] MEDS: PREGABALIN 25 MG CAPSULE PO SCH ×2 (09:06→20:02)
[2020-03-27] MEDS: MULTIVITAMINS/MINERALS TABLET PO SCH (09:06)
[2020-03-27] MEDS: THIAMINE 100MG TABLET PO SCH ×2 (09:07→20:02)
[2020-03-27] MEDS: MEMANTINE 5MG TABLET PO SCH (09:07)
[2020-03-27] MEDS: FOLIC ACID 1 MG TABLET PO SCH (09:07)
[2020-03-27] MEDS: OLANZAPINE 5 MG TABLET PO SCH (09:07)
[2020-03-27] MEDS: ENOXAPARIN 40 MG/0.4 ML SQ SCH (13:21)
[2020-03-27 15:38] VITALS: BP 113/75
[2020-03-27 18:31] VITALS: BP 101/66
[2020-03-28 00:25] VITALS: BP 115/78
[2020-03-28 06:34] VITALS: BP 100/68
[2020-03-28] MEDS: PREGABALIN 25 MG CAPSULE PO SCH ×2 (07:51→20:06)
[2020-03-28] MEDS: THIAMINE 100MG TABLET PO SCH (07:51)
[2020-03-28] MEDS: MULTIVITAMINS/MINERALS TABLET PO SCH (07:51)
[2020-03-28] MEDS: MEMANTINE 5MG TABLET PO SCH (07:51)
[2020-03-28] MEDS: FOLIC ACID 1 MG TABLET PO SCH (07:51)
[2020-03-28] MEDS: OLANZAPINE 5 MG TABLET PO SCH (07:52)
[2020-03-28] MEDS: ENOXAPARIN 40 MG/0.4 ML SQ SCH (12:45)
[2020-03-28 13:35] VITALS: BP 103/68
[2020-03-28 18:53] VITALS: BP 105/70
[2020-03-29 00:49] VITALS: BP 98/63
[2020-03-29 07:11] VITALS: BP 105/68
[2020-03-29] MEDS: MULTIVITAMINS/MINERALS TABLET PO SCH (08:22)
[2020-03-29] MEDS: PREGABALIN 25 MG CAPSULE PO SCH ×2 (08:22→20:12)
[2020-03-29] MEDS: MEMANTINE 5MG TABLET PO SCH (08:22)
[2020-03-29] MEDS: OLANZAPINE 5 MG TABLET PO SCH (08:22)
[2020-03-29 14:20] VITALS: BP 108/72
[2020-03-29 18:27] VITALS: BP 108/74
[2020-03-30 00:31] VITALS: BP 110/76
[2020-03-30 05:17] LABS: ALBUMIN 3.1 g/dL (3.4-5.0); ANION GAP 6 mmol/L (5-15); CALCIUM 9.9 mg/dL (8.5-10.1); CHLORIDE 105 mmol/L (98-107); CREATININE 0.54 mg/dL (0.55-1.02)
[2020-03-30 05:24] LABS: ALANINE AMINOTRANSFERASE 12 U/L (12-78); ALKALINE PHOSPHATASE 79 U/L (45-117); BILIRUBIN,TOTAL 0.3 mg/dL (0.2-1.0); TOTAL PROTEIN 7.2 g/dL (6.4-8.2)
[2020-03-30 05:32] LABS: BASOPHILS # (AUTO) 0.02 x10^3/uL (0-0.1); BASOPHILS % (AUTO) 0 % (0-1); EOSINOPHILS # (AUTO) 0.18 x10^3/uL (0-0.4); EOSINOPHILS % (AUTO) 3 % (1-7); LYMPHOCYTES # (AUTO) 1.98 x10^3/uL (1-3.4); LYMPHOCYTES % (AUTO) 32 % (22-44); MD NO; MEAN CORPUSCULAR HEMOGLOBIN 29.4 pg (27.0-34.8); MEAN CORPUSCULAR HGB CONC 32.9 g/dL (32.4-35.8); MONOCYTES # (AUTO) 0.78 x10^3/uL (0.2-0.8); MONOCYTES % (AUTO) 12 % (2-9); NEUTROPHILS # (AUTO) 3.31 x10^3/uL (1.8-6.8); NEUTROPHILS % (AUTO) 53 % (42-75); PLATELET COUNT 256 x10^3/uL (130-400); RED BLOOD COUNT 4.04 x10^6/uL (3.82-5.3); RED CELL DISTRIBUTION WIDTH 14.1 % (9.6-15.2)
[2020-03-30 07:19] VITALS: BP 115/79
[2020-03-30] MEDS: MULTIVITAMINS/MINERALS TABLET PO SCH (08:42)
[2020-03-30] MEDS: MEMANTINE 5MG TABLET PO SCH (08:42)
[2020-03-30] MEDS: OLANZAPINE 5 MG TABLET PO SCH (08:42)
[2020-03-30] MEDS: PREGABALIN 25 MG CAPSULE PO SCH ×2 (08:43→20:32)
[2020-03-30 12:20] VITALS: BP 109/74
[2020-03-30 20:06] VITALS: BP 104/69
[2020-03-31 02:16] VITALS: BP 107/72
[2020-03-31 08:25] VITALS: BP 101/69
[2020-03-31] MEDS: MULTIVITAMINS/MINERALS TABLET PO SCH (09:50)
[2020-03-31] MEDS: MEMANTINE 5MG TABLET PO SCH (09:50)
[2020-03-31] MEDS: OLANZAPINE 5 MG TABLET PO SCH (09:50)
[2020-03-31] MEDS: PREGABALIN 25 MG CAPSULE PO SCH ×2 (09:50→20:24)
[2020-03-31 13:33] VITALS: BP 101/64
[2020-03-31 20:05] VITALS: BP 107/71
[2020-04-01 03:36] VITALS: BP 100/64
[2020-04-01 06:34] VITALS: BP 107/72
[2020-04-01] MEDS: MEMANTINE 5MG TABLET PO SCH (07:51)
[2020-04-01] MEDS: MULTIVITAMINS/MINERALS TABLET PO SCH (07:51)
[2020-04-01] MEDS: PREGABALIN 25 MG CAPSULE PO SCH ×2 (07:51→20:13)
[2020-04-01] MEDS: OLANZAPINE 5 MG TABLET PO SCH (07:51)
[2020-04-01 12:34] VITALS: BP_SYST 105
[2020-04-01 18:53] VITALS: BP 98/67
[2020-04-02 00:19] VITALS: BP 96/59
[2020-04-02 06:45] LABS: CREATININE 0.52 mg/dL (0.55-1.02)
[2020-04-02 07:40] VITALS: BP 103/70
[2020-04-02] MEDS: OLANZAPINE 5 MG TABLET PO SCH (07:48)
[2020-04-02] MEDS: MULTIVITAMINS/MINERALS TABLET PO SCH (07:48)
[2020-04-02] MEDS: MEMANTINE 5MG TABLET PO SCH (07:48)
[2020-04-02] MEDS: PREGABALIN 25 MG CAPSULE PO SCH ×2 (07:48→21:06)
[2020-04-02 14:15] VITALS: BP 96/65
[2020-04-02 18:39] VITALS: BP 96/67
[2020-04-03 00:55] VITALS: BP 102/70
[2020-04-03] MEDS: MEMANTINE 5MG TABLET PO SCH (07:45)
[2020-04-03] MEDS: OLANZAPINE 5 MG TABLET PO SCH (07:45)
[2020-04-03] MEDS: MULTIVITAMINS/MINERALS TABLET PO SCH (07:45)
[2020-04-03] MEDS: PREGABALIN 25 MG CAPSULE PO SCH ×2 (07:45→20:22)
[2020-04-03 09:39] VITALS: BP 102/73
[2020-04-03 13:38] VITALS: BP 106/70
[2020-04-03 18:19] VITALS: BP 118/78
[2020-04-04 00:55] VITALS: BP 107/69
[2020-04-04 06:57] VITALS: BP 99/68
[2020-04-04] MEDS: OLANZAPINE 5 MG TABLET PO SCH (07:26)
[2020-04-04] MEDS: MULTIVITAMINS/MINERALS TABLET PO SCH (07:26)
[2020-04-04] MEDS: MEMANTINE 5MG TABLET PO SCH (07:26)
[2020-04-04] MEDS: PREGABALIN 25 MG CAPSULE PO SCH ×2 (07:26→20:20)
[2020-04-04 13:56] VITALS: BP 110/76
[2020-04-04 20:17] VITALS: BP 110/73
[2020-04-05 02:38] VITALS: BP 108/74
[2020-04-05 05:50] LABS: CREATININE 0.51 mg/dL (0.55-1.02)
[2020-04-05 07:23] VITALS: BP 110/71
[2020-04-05] MEDS: OLANZAPINE 5 MG TABLET PO SCH (09:48)
[2020-04-05] MEDS: MEMANTINE 5MG TABLET PO SCH (09:48)
[2020-04-05] MEDS: PREGABALIN 25 MG CAPSULE PO SCH ×2 (09:48→20:39)
[2020-04-05] MEDS: MULTIVITAMINS/MINERALS TABLET PO SCH (09:49)
[2020-04-05 13:14] VITALS: BP 115/80
[2020-04-05 19:39] VITALS: BP 101/68
[2020-04-06 00:09] VITALS: BP 96/64
[2020-04-06 07:33] VITALS: BP 106/69
[2020-04-06] MEDS: MULTIVITAMINS/MINERALS TABLET PO SCH (09:51)
[2020-04-06] MEDS: PREGABALIN 25 MG CAPSULE PO SCH ×2 (09:51→20:20)
[2020-04-06] MEDS: OLANZAPINE 5 MG TABLET PO SCH (09:51)
[2020-04-06] MEDS: MEMANTINE 5MG TABLET PO SCH (09:51)
[2020-04-06 14:02] VITALS: BP 101/71
[2020-04-06 19:09] VITALS: BP 111/71
[2020-04-07 00:58] VITALS: BP 94/61
[2020-04-07 06:28] VITALS: BP 103/70
[2020-04-07] MEDS: MEMANTINE 5MG TABLET PO SCH (08:57)
[2020-04-07] MEDS: OLANZAPINE 5 MG TABLET PO SCH (08:57)
[2020-04-07] MEDS: MULTIVITAMINS/MINERALS TABLET PO SCH (08:57)
[2020-04-07] MEDS: PREGABALIN 25 MG CAPSULE PO SCH (08:58)
[2020-04-07] MEDS ORDERED: PREG25CA PO (09:33)
[2020-04-07] MEDS ORDERED: MEMA5TAB42 PO (09:33)
[2020-04-07] MEDS ORDERED: OLAN5TAB9 PO (09:33)
== END 2020-04-07 10:27 | disposition home or self-care (01) | DRG 896 ==
LOC: ED 04:19 → EDIP 04:30 → 4EST 07:03 → 3N 02-20 18:26 → DCLOUNGE 04-07 10:14
PROVIDERS: ADMIT Family Medicine; ATTEND Family Medicine
DX: F10.251 Alcohol dependence with alcohol-induced psychotic disorder with hallucinations (principal); G93.41 Metabolic encephalopathy; E43 Unspecified severe protein-calorie malnutrition; E51.2 Wernicke's encephalopathy; D61.818 Other pancytopenia; E87.1 Hypo-osmolality and hyponatremia; A04.72 Enterocolitis due to Clostridium difficile, not specified as recurrent; F10.26 Alcohol dependence with alcohol-induced persisting amnestic disorder; F10.231 Alcohol dependence with withdrawal delirium; D53.9 Nutritional anemia, unspecified; E83.39 Other disorders of phosphorus metabolism; E83.42 Hypomagnesemia; E86.1 Hypovolemia; E87.6 Hypokalemia; F17.210 Nicotine dependence, cigarettes, uncomplicated; G31.9 Degenerative disease of nervous system, unspecified; G57.90 Unspecified mononeuropathy of unspecified lower limb; K70.10 Alcoholic hepatitis without ascites; S02.2XXA Fracture of nasal bones, initial encounter for closed fracture; W10.9XXA Fall (on) (from) unspecified stairs and steps, initial encounter; R94.31 Abnormal electrocardiogram [ECG] [EKG]; Y93.89 Activity, other specified; Y92.89 Other specified places as the place of occurrence of the external cause; Y99.0 Civilian activity done for income or pay; Y90.9 Presence of alcohol in blood, level not specified; F19.10 Other psychoactive substance abuse, uncomplicated
CPT/HCPCS: 36415; 96360; 96361; 99291; J7042; 70551; 80048; 80053; 80307; 81003; 82140; 82330; 82565; 82607; 83735; 84100; 84443; 85025; 86592; 87324; 93005; G0378; J1650; J3411; J3475; J3480; J3486; 92523-GN; J2060; J7030; J7040